=== PATIENT | male | born 1940 | race Caucasian/White ===

== ENCOUNTER 2016-08-22 22:48 | Emergency (ER) | payer MEDICARE ==
[2016-08-22 22:57] LABS: ASCORBIC ACID (UR NOT ORDER) NEG (NEG); BILIRUBIN, URINE NEGATIVE (NEG); KETONE, URINE NEGATIVE (NEG); LEUKOCYTE ESTERASE(NOT OR NEG (NEG); NITRITE (URINE) NEG (NEG); WBC (NOT ORDERED) (RFLEX) < 1 (0-5)
[2016-08-28] MEDS ORDERED: LOP25 PO (12:00)
[2016-08-28] MEDS ORDERED: T300 PO (12:02)
[2016-08-28] MEDS ORDERED: GLUCOTRO10 PO (12:02)
[2016-08-28] MEDS ORDERED: GLUCOTROL5 PO (12:02)
[2016-08-28] MEDS ORDERED: PRIN10 PO (12:03)
[2016-08-28] MEDS ORDERED: FLOMAX4 PO (12:03)
[2016-08-28] MEDS ORDERED: SINGULAIR1 PO (12:04)
[2016-08-28] MEDS ORDERED: KLOR-CON M2020 MEQ PO (12:04)
[2016-08-28] MEDS ORDERED: ZYRTEC ALLGY10 MG PO (12:04)
[2016-08-28] MEDS ORDERED: L40 PO (12:05)
[2016-08-28] MEDS ORDERED: LEVOTHYROXIN112 MCG PO (12:06)
[2016-08-28] MEDS ORDERED: SYMBICORT 160/41 INH INH (12:07)
[2016-08-28] MEDS ORDERED: LANTUS SC (12:08)
[2016-08-28] MEDS ORDERED: VENTOLIN HFA INH (12:08)
[2016-08-28] MEDS ORDERED: ASAB PO (12:09)
[2016-08-28] MEDS ORDERED: VITAMIN D1000 UNI1 PO (12:09)
[2016-09-01] MEDS ORDERED: NORCO1 TA1 PO (09:54)
[2016-09-01] MEDS ORDERED: DSS PO (09:54)
[2016-09-01] MEDS ORDERED: CIP5 PO (09:54)
== END 2016-08-22 23:17 | disposition home or self-care (01) ==
LOC: ER 22:48
PROVIDERS: Emergency Medicine
DX: R33.9 Retention of urine, unspecified (principal); J44.9 Chronic obstructive pulmonary disease, unspecified; I11.0 Hypertensive heart disease with heart failure; I50.9 Heart failure, unspecified; E11.9 Type 2 diabetes mellitus without complications; Z87.891 Personal history of nicotine dependence; Z95.5 Presence of coronary angioplasty implant and graft; Z85.118 Personal history of other malignant neoplasm of bronchus and lung; Z88.8 Allergy status to other drugs, medicaments and biological substances; Z91.09 Other allergy status, other than to drugs and biological substances
CPT/HCPCS: 81001; 99283